=== PATIENT | male | born 1985 | race American Indian/Alaskan Native ===

== ENCOUNTER 2021-06-15 08:46 | Outpatient (CLI) | payer BC ==
--- NOTE | 2021-06-15 12:18 | Ultrasound Report ---
US abdomen limited INDICATION / CLINICAL INFORMATION: UMBILICAL HERNIA W/O OBSTRUCTION W/O GANGRENE. COMPARISON: None available. FINDINGS: Limited grayscale and color Doppler imaging in the umbilical area of concern. There is a small fat-containing umbilical hernia noted within the area of concern with a small abdomi nal wall defect measuring 2.7 cm. No sonographic evidence of bowel involvement. IMPRESSION: 1. Small, fat-containing umbilical hernia. Scribed by: Julia Deleon RDMS, RVT Scribed: 06/15/2021 9:20 AM I have reviewed the images, agree with this report, and edited this report as needed. Signer Name: Allan Reyna MD Signed: 06/15/2021 12:13 PM Workstation Name: [id number]
== END 2021-06-15 08:47 | disposition home or self-care (01) ==
LOC: US 08:46
PROVIDERS: ATTEND Internal Medicine
DX: K42.9 Umbilical hernia without obstruction or gangrene (principal)
CPT/HCPCS: 76705